=== PATIENT | male | born 1980 | race African-American/Black ===

== ENCOUNTER 2017-09-28 20:56 | Emergency (ER) | payer OTHER ==
--- NOTE | 2017-09-28 21:10 | PDOC ---
Rapid Medical Evaluation Time Seen by Provider: 09/28/17 21:05 Medical Evaluation: 09/28/17 21:06 I have performed a brief in-person evaluation of this patient. The patient presents with a chief complaint of: RUQ x3d but subsided. Pain to abd upon urination/ with frequency/urgency. H/O STD Chlamydia at age 16. Sexually active with 2 different women. Pertinent physical exam findings:Soreness on palp to RUQ. Neg CVAT I have ordered the following: ua/uc, cbc, cmp, amylase,lipase The patient will proceed to the ED for further evaluation.
[2017-09-28 21:12] VITALS: BP 120/75; PULSE 85; TEMP 98.1; BMI 23.5
[2017-09-28 21:41] LABS: BASO # 0.1 #; BASO % 1.2 % (0-2.0); EOS # 0.3 #; EOS % 3.2 % (0-4.5); MCH 28.3 pg (25.7-33.7); MCHC 33.1 g/dl (32.0-35.9); MEAN CELL VOLUME 85.5 fl (80-96); MEAN PLT VOLUME 9.6 fl (7.5-11.1); MONO # 0.9 #; NEUT % 48.6 % (42.8-82.8); PLATELET COUNT 277 K/MM3 (134-434); RDW 13.1 % (11.9-15.9); WHITE BLOOD COUNT 8.2 K/mm3 (4.0-10.0)
[2017-09-28 21:46] LABS: URINE APPEARANCE CLEAR; URINE BILIRUBIN NEGATIVE (NEGATIVE); URINE BLOOD NEGATIVE (NEGATIVE); URINE COLOR LTYELLOW; URINE GLUCOSE (UA) NEGATIVE (NEGATIVE); URINE KETONE NEGATIVE (NEGATIVE); URINE LEUK ESTERASE NEGATIVE (NEGATIVE); URINE NITRITE NEGATIVE (NEGATIVE); URINE PROTEIN NEGATIVE (NEGATIVE); URINE UROBILINOGEN NEGATIVE mg/dL (0.2-1.0)
[2017-09-28 22:09] LABS: AMYLASE 95 U/L (25-115)
[2017-09-28 22:15] LABS: ALBUMIN 4.1 g/dl (3.4-5.0); ANION GAP 9 (8-16); BILIRUBIN,TOTAL 0.5 mg/dL (0.2-1.0); CO2 24 mmol/L (21-32); CREATININE 0.9 mg/dL (0.7-1.3); GLUCOSE,RANDOM 94 mg/dL (74-106); SGOT/AST 17 U/L (15-37); SGPT/ALT 19 U/L (12-78); TOT PROT 7.6 g/dl (6.4-8.2)
[2017-09-28 22:16] LABS: ALK PHOS 77 U/L (45-117)
[2017-09-28 22:42] LABS: URINE LEUK ESTERASE Negative (NEGATIVE)
--- NOTE | 2017-09-28 23:03 | PDOC ---
History of Present Illness - General Chief Complaint: Pain Stated Complaint: STOMACH PAIN Time Seen by Provider: 09/28/17 21:05 History Source: Patient Exam Limitations: No Limitations - History of Present Illness Travel History: No Initial Comments: 09/28/17 23:01 36-year-old male with history of chlamydia 20 years ago presents to the emergency department complaining of right upper quadrant abdominal pains which started 3 days ago and described as 2/10 dull nonradiating intermittent discomfort which has subsided this evening prior to arriving to the emergency department. Patient also complains of a funny feeling when voiding with urinary frequency and urgency but denies burning upon urination, hematuria. Patient denies fever, chills, nausea/vomiting, chest pain, shortness of breath, abdominal pains, flank pains. Patient is currently sexually active with 2 different women. Pt states it feels similar to his previous STD Timing/Duration: reports: intermittent Quality: reports: cramping Abdominal Pain Onset Location: reports: RUQ (subsided today) Past History - Past Medical History Allergies/Adverse Reactions: Allergies Allergy/AdvReac Type Severity Reaction Status Date / Time No Known Allergies Allergy Verified 09/28/17 21:08 Home Medications: Ambulatory Orders NK [No Known Home Medication] 09/29/17 COPD: No Other medical history: Pt denies - Suicide/Smoking/Psychosocial Hx Smoking History: Never smoked Have you smoked in the past 12 months: No Information on smoking cessation initiated: No Hx Alcohol Use: No Drug/Substance Use Hx: No Substance Use Type: None Review of Systems - Review of Systems Able to Perform ROS?: Yes Comments:: 09/28/17 23:02 CONSTITUTIONAL: Absent: fever, chills, diaphoresis, generalized weakness, malaise, loss of appetite HEENT: Absent: rhinorrhea, nasal congestion, throat pain, throat swelling, difficulty swallowing, mouth swelling, ear pain, eye pain, visual Changes CARDIOVASCULAR: Absent: chest pain, loss of consciousness, palpitations, irregular heart rate, peripheral edema RESPIRATORY: Absent: cough, shortness of breath, dyspnea with exertion, orthopnea, wheezing, stridor, hemoptysis GASTROINTESTINAL: subsided RUQ pain Absent: abdominal distension, nausea, vomiting, diarrhea, constipation, melena , hematochezia GENITOURINARY: +frequency, urgency, hesitancy, Absent: dysuria, hematuria, flank pain, genital pain MUSCULOSKELETAL: Absent: myalgia, arthralgia, joint swelling SKIN: Absent: rash, itching, pallor Is the patient limited Occitan proficient: No *Physical Exam - Vital Signs Last Vital Signs Temp Pulse Resp BP Pulse Ox 98.1 F 85 19 120/75 98 09/28/17 21:10 09/28/17 21:10 09/28/17 21:10 09/28/17 21:10 09/28/17 21:10 - Physical Exam Comments: 09/28/17 23:03 GENERAL: Well developed, well nourished. Awake and alert. No acute distress. HEENT: Normocephalic, atraumatic. PERRLA, EOMI. No conjunctival pallor. Sclera are non- icteric. Moist mucous membranes. Oropharynx is clear. NECK: Supple. Full ROM. No JVD. Carotid pulses 2+ and symmetric, without bruits. No thyromegaly. No lymphadenopathy. CARDIOVASCULAR: Regular rate and rhythm. No murmurs, rubs, or gallops. Distal pulses are 2+ and symmetric. PULMONARY: No evidence of respiratory distress. Lungs clear to auscultation bilaterally. No wheezing, rales or rhonchi. ABDOMINAL: Soft. Non-tender. Non-distended. No rebound or guarding. No organomegaly. Normoactive bowel sounds. MUSCULOSKELETAL Normal range of motion at all joints. No bony deformities or tenderness. No CVA tenderness. EXTREMITIES: No cyanosis. No clubbing. No edema. No calf tenderness. SKIN: Warm and dry. Normal capillary refill. No rashes. No jaundice. NEUROLOGICAL: Alert, awake, appropriate. Cranial nerves 2-12 intact. No deficits to light touch and temperature in face, upper extremities and lower extremities. No motor deficits in the in face, upper extremities and lower extremities. Normoreflexic in the upper and lower extremities. Normal speech. Toes are down- going bilaterally. Gait is normal without ataxia. PSYCHIATRIC: Cooperative. Good eye contact. Appropriate mood and affect. ED Treatment Course - LABORATORY CBC & Chemistry Diagram: 09/28/17 21:23 09/28/17 21:23 - ADDITIONAL ORDERS Additional order review: Laboratory Results 09/28/17 09/28/17 09/28/17 21:40 21:23 21:23 Sodium 139 Potassium 3.9 Chloride 106 Carbon Dioxide 24 Anion Gap 9 BUN 16 Creatinine 0.9 Creat Clearance w eGFR > 60 Random Glucose 94 Calcium 9.0 Total Bilirubin 0.5 AST 17 ALT 19 Alkaline Phosphatase 77 Total Protein 7.6 Albumin 4.1 Total Amylase 95 Lipase 149 Urine Color Ltyellow Urine Appearance Clear Urine pH 5.0 Ur Specific Rebuck 1.024 Urine Protein Negative Urine Glucose (UA) Negative Urine Ketones Negative Urine Blood Negative Urine Nitrite Negative Urine Bilirubin Negative Urine Urobilinogen Negative Ur Leukocyte Esterase Negative 09/28/17 21:23 RBC 5.39 MCV 85.5 MCHC 33.1 RDW 13.1 MPV 9.6 Neutrophils % 48.6 Lymphocytes % 36.3 Monocytes % 10.7 H Eosinophils % 3.2 Basophils % 1.2 - RADIOLOGY Radiology Studies Ordered: Category Date Time Status ABDOMEN US -LIMITED [US] Stat Ultrasound 09/28/17 23:00 Ordered Progress Note - Progress Note Progress Note: Pt adamantly refuses any ultrasound imaging of his abd. Pt says he has no time and wishes to go with STD treatment *DC/Admit/Observation/Transfer Diagnosis at time of Disposition: STD (male) - Discharge Dispostion Disposition: HOME Condition at time of disposition: Stable Admit: No - Referrals Referrals: Too Vasquez MD [Staff Physician] - - Patient Instructions Printed Discharge Instructions: Facts About Sexually Transmitted Infections Additional Instructions: No sexual activity for 2 weeks Rest Follow up with your physician and the urologist(Dr. Vasquez) or infectious disease (Dr. Wolff) Return to the ER as needed - Post Discharge Activity
--- NOTE | 2017-09-28 23:10 | PDOC ---
*Physical Exam - Vital Signs Last Vital Signs Temp Pulse Resp BP Pulse Ox 98.1 F 85 19 120/75 98 09/28/17 21:10 09/28/17 21:10 09/28/17 21:10 09/28/17 21:10 09/28/17 21:10 ED Treatment Course - LABORATORY CBC & Chemistry Diagram: 09/28/17 21:23 09/28/17 21:23 - ADDITIONAL ORDERS Additional order review: Laboratory Results 09/28/17 09/28/17 09/28/17 21:40 21:23 21:23 Sodium 139 Potassium 3.9 Chloride 106 Carbon Dioxide 24 Anion Gap 9 BUN 16 Creatinine 0.9 Creat Clearance w eGFR > 60 Random Glucose 94 Calcium 9.0 Total Bilirubin 0.5 AST 17 ALT 19 Alkaline Phosphatase 77 Total Protein 7.6 Albumin 4.1 Total Amylase 95 Lipase 149 Urine Color Ltyellow Urine Appearance Clear Urine pH 5.0 Ur Specific Nice 1.024 Urine Protein Negative Urine Glucose (UA) Negative Urine Ketones Negative Urine Blood Negative Urine Nitrite Negative Urine Bilirubin Negative Urine Urobilinogen Negative Ur Leukocyte Esterase Negative 09/28/17 21:23 RBC 5.39 MCV 85.5 MCHC 33.1 RDW 13.1 MPV 9.6 Neutrophils % 48.6 Lymphocytes % 36.3 Monocytes % 10.7 H Eosinophils % 3.2 Basophils % 1.2 Medical Decision Making - Medical Decision Making 09/28/17 23:09 agree with care from YEIM[facility] Pack *DC/Admit/Observation/Transfer Diagnosis at time of Disposition: STD (male) - Discharge Dispostion Disposition: HOME Condition at time of disposition: Stable - Referrals Referrals: Too Vasquez MD [Staff Physician] - - Patient Instructions Printed Discharge Instructions: Facts About Sexually Transmitted Infections Additional Instructions: No sexual activity for 2 weeks Rest Follow up with your physician and the urologist(Dr. Vasquez) or infectious disease (Dr. Wolff) Return to the ER as needed - Post Discharge Activity
[2017-09-28] MEDS ORDERED: INSULIN REGULAR HUMAN 100 UNITS/ML *VIAL IVPUSH ONE (23:57)
[2017-09-29] MEDS ORDERED: AZITHROMYCIN 1 GM PACKET PO ONE (00:09)
[2017-09-29] MEDS ORDERED: AZITHROMYCIN 250 MG TABLET ONE (00:13)
[2017-09-29] MEDS ORDERED: cefTRIAXone SODIUM 1 GM VIAL ONE (00:13)
[2017-09-29] MEDS ORDERED: LIDOCAINE HCL 1%, 10 MG/ML (20ML VIAL) ONE (00:14)
== END 2017-09-29 00:38 | disposition home or self-care (01) ==
LOC: JER 20:56
DX: A63.8 Other specified predominantly sexually transmitted diseases (principal)
CPT/HCPCS: 36415; 80053; 81003; 82150; 83690; 85025; 87086; 99281-25

== ENCOUNTER 2019-11-14 23:47 | Emergency (ER) | payer OTHER ==
[2019-11-14 23:59] VITALS: PULSE 85; TEMP 98.2; BMI 20.3
--- NOTE | 2019-11-15 02:48 | PDOC ---
Attending Attestation - Resident Resident Name: AbbeHill - ED Attending Attestation I have performed the following: I have examined & evaluated the patient, The case was reviewed & discussed with the resident, I agree w/resident's findings & plan - HPI HPI: 11/15/19 02:46 see resident hpi - Physicial Exam PE: 11/15/19 02:46 see resident exam - Medical Decision Making 11/15/19 02:47 38-year-old male complaining of painful ejaculation Cover for symptomatic urethritis Plan for general exam, DC with urology follow-up
[2019-11-15] MEDS ORDERED: AZITHROMYCIN 500 MG TABLET PO ONE (03:33)
[2019-11-15] MEDS ORDERED: cefTRIAXone SODIUM 1 GM VIAL ONE (03:50)
[2019-11-15] MEDS ORDERED: AZITHROMYCIN 250 MG TABLET ONE (03:50)
--- NOTE | 2019-11-15 04:06 | PDOC ---
History of Present Illness - General Chief Complaint: Pain Stated Complaint: ABD PAIN/ CONSTIPATION Time Seen by Provider: 11/15/19 02:45 History Source: Patient Exam Limitations: No Limitations - History of Present Illness Initial Comments: 38 yo M with no pmhx presents to the emergency department with painful ejaculation. Per the patient, he noticed the pain this past tuesday. In addition , he had another episode yesterday. Denies hx of STD, hematuria, dysuria, testicular pain, testicular swelling, and penile discharge. He described the pain as a "pop" like sensation when it occurs and immediately ceases after the ejaculation episode. Denies shaft pain or trauma to the penis. He endorses concerns of having a STD. Denies the following: fevers, chills, SOB, chest pain , abdominal pain, diarrhea, hematochezia, and leg pain/swelling. Past History - Past Medical History Allergies/Adverse Reactions: Allergies Allergy/AdvReac Type Severity Reaction Status Date / Time No Known Allergies Allergy Verified 11/14/19 23:59 Home Medications: Ambulatory Orders NK [No Known Home Medication] 09/29/17 COPD: No - Psycho Social/Smoking Cessation Hx Smoking History: Never smoked Have you smoked in the past 12 months: No Information on smoking cessation initiated: No Hx Alcohol Use: No Drug/Substance Use Hx: Yes Substance Use Type: None Review of Systems - Review of Systems Able to Perform ROS?: Yes Is the patient limited Cameroonian proficient: No Constitutional: No: Chills, Diaphoresis, Fever, Weakness HEENTM: No: Eye Pain, Ear Pain, Nose Pain, Throat Pain, Mouth Pain Respiratory: No: Cough, Shortness of Breath, Hemoptysis Cardiac (ROS): No: Chest Pain, Lightheadedness, Palpitations, Chest Tightness ABD/GI: No: Constipated, Diarrhea, Nausea, Rectal Bleeding, Vomiting, Tarry Stools : Yes: Other (ejaculation pain). No: Burning, Dysuria, Hematuria, Testicular Mass, Testicular Swelling Musculoskeletal: No: Back Pain, Joint Pain, Neck Pain Integumentary: No: Bruising, Erythema, Rash Neurological: No: Headache, Numbness Psychiatric: No: Stressors, Change in Appetite Endocrine: No: Excessive Sweating, Unexplained Weight Loss Hematologic/Lymphatic: No: Anemia *Physical Exam - Vital Signs Last Vital Signs Temp Pulse Resp BP Pulse Ox 98.2 F 85 18 116/74 100 11/14/19 23:55 11/14/19 23:55 11/14/19 23:55 11/14/19 23:55 11/14/19 23:55 - Physical Exam General Appearance: Yes: Nourished, Appropriately Dressed. No: Apparent Distress, Intoxicated HEENT: positive: EOMI, ESTELLE, Normal Voice, Symmetrical, Pharynx Normal Neck: positive: Trachea midline, Supple. negative: Tender, Lymphadenopathy (R) , Lymphadenopathy (L), Tender lateral, Tender midline Respiratory/Chest: positive: Lungs Clear, Normal Breath Sounds. negative: Chest Tender, Respiratory Distress, Accessory Muscle Use Cardiovascular: positive: Regular Rhythm, Regular Rate, S1, S2. negative: Systolic Murmur Gastrointestinal/Abdominal: positive: Normal Bowel Sounds, Flat, Soft. negative : Tender Male Genitalia: positive: normal genitalia, other (no injuries noted at the meatus. no blood at the meatus). negative: discharge, testicular tenderness, testicular mass, epididymus tender, inguinal hernia, hematuria Lymphatic: negative: Adenopathy Musculoskeletal: positive: Normal Inspection. negative: CVA Tenderness, Vertebral Tenderness Extremity: positive: Normal Capillary Refill, Normal Inspection, Normal Range of Motion. negative: Tender Integumentary: positive: Normal Color, Dry, Warm Neurologic: positive: Alert, Normal Mood/Affect ED Treatment Course - Medications Given in the ED: ED Medications Discontinued Medications Generic Name Dose Route Start Last Admin Trade Name Freq PRN Reason Stop Dose Admin Azithromycin 1,000 mg 11/15/19 03:33 11/15/19 04:01 Zithromax PO 11/15/19 03:34 1,000 mg ONCE ONE Administration Ceftriaxone Sodium 250 mg 11/15/19 03:33 11/15/19 04:01 Rocephin - IM 11/15/19 03:34 250 mg ONCE ONE Administration Medical Decision Making - Medical Decision Making Patient presents to the emergency department with ejaculation pain. Initial Vital Signs Temp Pulse Resp BP Pulse Ox 98.2 F 85 18 116/74 100 11/14/19 23:55 11/14/19 23:55 11/14/19 23:55 11/14/19 23:55 11/14/19 23:55 Afebrile. denies discharge however is concerned that he may have a STD. The patient to be given prophylaxis for STD coverage, Given ceftriaxone and azithromycin. I advised the patient to have his partners treated as well and he understood and agreed. The patient states he will see his PMD within 1 week after discharge for follow up care and management. Patient to be discharged. Discharge - Discharge Information Problems reviewed: Yes Clinical Impression/Diagnosis: Penile pain Condition: Fair Disposition: HOME - Admission No - Follow up/Referral Referrals: [facility] [Provider Group] - Patient Discharge Instructions Additional Instructions: You were seen for the evaluation of your penile pain. You were given antibiotics prophylactically for infection. Please follow up with your primary medical doctor within 1 week after discharge for follow up care and management. Please return to the emergency department if you have worsening symptoms. Thank you. - Post Discharge Activity Work/Back to School Note: Back to Work
[2019-11-15 04:10] VITALS: BP 119/67
== END 2019-11-15 04:14 | disposition home or self-care (01) ==
LOC: JER 23:47
DX: N48.89 Other specified disorders of penis (principal)
CPT/HCPCS: 96372; 99284-25

== ENCOUNTER 2022-06-30 22:37 | Emergency (ER) | payer OTHER ==
[2022-06-30 22:49] VITALS: BP 124/84; PULSE 81; RESP 18; TEMP 98; BMI 20.3
[2022-06-30] MEDS ORDERED: ACETAMINOPHEN 500 MG TABLET (FP) PO ONE (23:34)
[2022-06-30] MEDS ORDERED: KETOROLAC TROMETHAMINE 30 MG/1 ML VIAL IM ONE (23:34)
[2022-06-30] MEDS ORDERED: BUPIVACAINE HCL/PF 0.5% (5 MG/ML) 30 ML VIAL IJ ONE (23:35)
[2022-06-30] MEDS ORDERED: BUPIVACAINE HCL/PF 0.5% (5MG/ML) 10 ML VIAL ONE (23:36)
[2022-06-30] MEDS ORDERED: KETOROLAC TROMETHAMINE 30 MG/1 ML VIAL ONE (23:37)
[2022-06-30] MEDS ORDERED: ACETAMINOPHEN 325 MG TABLET (FP) ONE (23:37)
== END 2022-07-01 00:48 | disposition home or self-care (01) ==
LOC: JER 22:37
DX: K08.89 Other specified disorders of teeth and supporting structures (principal)
CPT/HCPCS: 99284-25

== ENCOUNTER 2023-03-25 09:34 | Emergency (ER) | payer OTHER ==
[2023-03-25 09:46] VITALS: TEMP 97.9; BMI 20.3
[2023-03-25 11:51] LABS: PH,URINE 7.5 (5.0-8.0); URINE APPEARANCE CLEAR; URINE BILIRUBIN NEGATIVE (NEGATIVE); URINE COLOR YELLOW; URINE GLUCOSE (UA) NEGATIVE (NEGATIVE); URINE KETONE NEGATIVE (NEGATIVE); URINE LEUK ESTERASE NEGATIVE (NEGATIVE); URINE NITRITE NEGATIVE (NEGATIVE); URINE PROTEIN NEGATIVE (NEGATIVE); URINE UROBILINOGEN 0.2 mg/dL (0.2-1.0)
[2023-03-25 12:41] VITALS: BP 115/81; PULSE 71; RESP 16
== END 2023-03-25 12:41 | disposition home or self-care (01) ==
LOC: JERFT 09:34
DX: N50.811 Right testicular pain (principal); N43.3 Hydrocele, unspecified
CPT/HCPCS: 76870-TC; 81003; 99284-25